=== PATIENT | male | born 1965 | race African-American/Black ===

== ENCOUNTER 2023-04-18 12:17 | Inpatient (IN) | payer OTHER ==
[2023-04-18 12:38] VITALS: BMI 23.8
[2023-04-18] MEDS ORDERED: NALOXONE HCL 0.4 MG/ML VIAL IM PRN (13:18)
[2023-04-18] MEDS ORDERED: guaiFENesin 600 MG TABLET.ER (FP) PO PRN (13:18)
[2023-04-18] MEDS ORDERED: hydrOXYzine PAMOATE 25 MG CAPSULE (FP) PO PRN (13:18)
[2023-04-18] MEDS ORDERED: BENZOCAINE/MENTHOL (CHLORASEPTIC ) LOZENGE MM PRN (13:18)
[2023-04-18] MEDS ORDERED: IBUPROFEN 600 MG TABLET (FP) PO PRN (13:18)
[2023-04-18] MEDS ORDERED: NALOXONE HCL (KLOXXADO) 8 MG SPRAY NS PRN (13:18)
[2023-04-18] MEDS ORDERED: MAGNESIUM HYDROX 2400MG/30ML ORAL SUSPENSION 30 ML CUP PO PRN (13:18)
[2023-04-18] MEDS ORDERED: COLLOIDAL OATMEAL 1 BAR EACH TP PRN (13:18)
[2023-04-18] MEDS ORDERED: POLYETHYLENE GLYCOL (HEALTHYLAX) 3350 17 GM PACKET PO PRN (13:18)
[2023-04-18] MEDS ORDERED: LOPERAMIDE HCL 2 MG CAPSULE PO PRN (13:18)
[2023-04-18] MEDS ORDERED: AMMONIUM LACTATE 12% LOTION 225 GM BOTTLE TP PRN (13:18)
[2023-04-18] MEDS ORDERED: ACETAMINOPHEN 325 MG TABLET (FP) PO PRN (13:18)
[2023-04-18] MEDS ORDERED: MAG HYDROX/AL HYDROX/SIMETH 30 ML UNIT-DOSE CUP PO PRN (13:18)
[2023-04-18] MEDS ORDERED: BENZONATATE 200 MG CAPSULE PO PRN (13:18)
[2023-04-18] MEDS ORDERED: IBUPROFEN 400 MG TABLET (FP) PO PRN (13:18)
[2023-04-18] MEDS ORDERED: NICOTINE 14 MG/24 HOURS TOPICAL PATCH TD ONE (15:07)
[2023-04-18] MEDS ORDERED: PRENATAL VITAMINS W/ FOLIC ACID TABLET (FP) PO ONE (15:07)
[2023-04-18] MEDS: NICOTINE 14 MG/24 HOURS TOPICAL PATCH TD SCH (15:15)
[2023-04-18] MEDS: PRENATAL VITAMINS W/ FOLIC ACID TABLET (FP) PO SCH (15:15)
[2023-04-18] MEDS: MELATONIN 5 MG TABLETS PO SCH (21:26)
[2023-04-18] MEDS: THIAMINE HCL 100 MG TABLET (FP) PO SCH (21:26)
[2023-04-19] MEDS: NICOTINE 14 MG/24 HOURS TOPICAL PATCH TD SCH (09:55)
[2023-04-19] MEDS: metFORMIN HCL 500 MG TABLET (FP) PO SCH ×2 (09:55→16:27)
[2023-04-19] MEDS: PRENATAL VITAMINS W/ FOLIC ACID TABLET (FP) PO SCH (09:55)
[2023-04-19] MEDS ORDERED: ALBUTEROL SO4 HFA INHALER IH PRN (10:00)
[2023-04-19] MEDS ORDERED: ARIPiprazole 10 MG TABLET PO SCH (10:00)
[2023-04-19 10:52] LABS: HEMATOCRIT 42.7 % (35.4-49); HEMOGLOBIN 14.2 GM/dL (11.7-16.9); MCH 31.2 pg (25.7-33.7); MCHC 33.3 g/dl (32.0-35.9); MEAN CELL VOLUME 93.6 fl (80-96); PLATELET COUNT 266 10^3/uL (134-434); RBC 4.56 M/mm3 (4.00-5.60); RDW 13.7 % (11.9-15.9); WHITE BLOOD COUNT 7.8 K/mm3 (4.0-10.0)
[2023-04-19 10:55] LABS: POTASSIUM 4.2 mmol/L (3.5-5.1)
[2023-04-19 10:59] LABS: ALBUMIN 3.2 g/dl (3.4-5.0); BLOOD UREA NITROGEN 16.7 mg/dL (7-18); CALCIUM 9.3 mg/dL (8.5-10.1); PH,URINE 5.5 (5.0-8.0); URINE APPEARANCE CLEAR; URINE BILIRUBIN NEGATIVE (NEGATIVE); URINE COLOR YELLOW; URINE GLUCOSE (UA) 2+ (NEGATIVE); URINE KETONE NEGATIVE (NEGATIVE); URINE LEUK ESTERASE NEGATIVE (NEGATIVE); URINE NITRITE NEGATIVE (NEGATIVE); URINE PROTEIN NEGATIVE (NEGATIVE); URINE UROBILINOGEN 0.2 mg/dL (0.2-1.0)
[2023-04-19 11:02] LABS: CREATININE 0.9 mg/dL (0.55-1.3)
[2023-04-19 11:04] LABS: BILIRUBIN,TOTAL 0.8 mg/dL (0.2-1); TOT PROT 6.7 g/dl (6.4-8.2)
[2023-04-19] MEDS: ARIPiprazole 10 MG TABLET PO SCH (11:18)
[2023-04-19 12:10] LABS: SYPHILIS W/ RPR CONF REACTIVE (NONREACTIVE)
[2023-04-19] MEDS ORDERED: METHYL SALICYLATE/MENTHOL OINT 30 GM TUBE TP PRN (13:47)
[2023-04-19] MEDS: LIDOCAINE 5% TOPICAL PATCH TP SCH (14:08)
[2023-04-19] MEDS: BACLOFEN 10 MG TABLET (FP) PO SCH ×2 (14:08→21:17)
[2023-04-19] MEDS: THIAMINE HCL 100 MG TABLET (FP) PO SCH (21:17)
[2023-04-19] MEDS: MELATONIN 5 MG TABLETS PO SCH (21:17)
[2023-04-19] MEDS: LIDOCAINE PATCH REMOVAL MC SCH (21:17)
[2023-04-20] MEDS: BACLOFEN 10 MG TABLET (FP) PO SCH ×3 (06:30→21:29)
[2023-04-20] MEDS: metFORMIN HCL 500 MG TABLET (FP) PO SCH ×2 (06:30→16:31)
[2023-04-20] MEDS: ARIPiprazole 10 MG TABLET PO SCH (10:23)
[2023-04-20] MEDS: NICOTINE 14 MG/24 HOURS TOPICAL PATCH TD SCH (10:24)
[2023-04-20] MEDS: PRENATAL VITAMINS W/ FOLIC ACID TABLET (FP) PO SCH (10:24)
[2023-04-20] MEDS: LIDOCAINE 5% TOPICAL PATCH TP SCH (10:26)
[2023-04-20] MEDS: MELATONIN 5 MG TABLETS PO SCH (21:29)
[2023-04-20] MEDS: THIAMINE HCL 100 MG TABLET (FP) PO SCH (21:29)
[2023-04-20] MEDS: LIDOCAINE PATCH REMOVAL MC SCH (21:30)
[2023-04-21] MEDS: metFORMIN HCL 500 MG TABLET (FP) PO SCH ×2 (06:54→17:07)
[2023-04-21] MEDS: BACLOFEN 10 MG TABLET (FP) PO SCH ×3 (06:54→21:39)
[2023-04-21] MEDS: PRENATAL VITAMINS W/ FOLIC ACID TABLET (FP) PO SCH (09:54)
[2023-04-21] MEDS: NICOTINE 14 MG/24 HOURS TOPICAL PATCH TD SCH (09:54)
[2023-04-21] MEDS: LIDOCAINE 5% TOPICAL PATCH TP SCH (09:55)
[2023-04-21] MEDS: ARIPiprazole 10 MG TABLET PO SCH (09:55)
[2023-04-21] MEDS: THIAMINE HCL 100 MG TABLET (FP) PO SCH (21:38)
[2023-04-21] MEDS: MELATONIN 5 MG TABLETS PO SCH (21:38)
[2023-04-21] MEDS: LIDOCAINE PATCH REMOVAL MC SCH (21:39)
[2023-04-22] MEDS: metFORMIN HCL 500 MG TABLET (FP) PO SCH ×2 (06:22→17:02)
[2023-04-22] MEDS: BACLOFEN 10 MG TABLET (FP) PO SCH ×3 (06:23→21:27)
[2023-04-22] MEDS: LIDOCAINE 5% TOPICAL PATCH TP SCH (10:08)
[2023-04-22] MEDS: PRENATAL VITAMINS W/ FOLIC ACID TABLET (FP) PO SCH (10:08)
[2023-04-22] MEDS: ARIPiprazole 10 MG TABLET PO SCH (10:09)
[2023-04-22] MEDS: NICOTINE 14 MG/24 HOURS TOPICAL PATCH TD SCH (10:09)
[2023-04-22] MEDS: THIAMINE HCL 100 MG TABLET (FP) PO SCH (21:27)
[2023-04-22] MEDS: MELATONIN 5 MG TABLETS PO SCH (21:28)
[2023-04-22] MEDS: LIDOCAINE PATCH REMOVAL MC SCH (21:30)
[2023-04-23] MEDS: metFORMIN HCL 500 MG TABLET (FP) PO SCH (06:12)
[2023-04-23] MEDS: BACLOFEN 10 MG TABLET (FP) PO SCH (06:12)
[2023-04-23 07:03] VITALS: BP 106/74; PULSE 75; RESP 18; TEMP 97.1
== END 2023-04-23 07:25 | disposition left against medical advice (07) | DRG 770 ==
LOC: YASAS 12:17 → Y3W 14:46
PROVIDERS: ADMIT Allergy & Immunology; ATTEND Psychiatry & Neurology Pain Medicine
PROC: HZ42ZZZ Group Counseling for Substance Abuse Treatment, Cognitive-Behavioral (ICD-10-PCS; principal; 2023-04-18)
DX: F14.20 Cocaine dependence, uncomplicated (principal); F10.10 Alcohol abuse, uncomplicated; F17.210 Nicotine dependence, cigarettes, uncomplicated; F25.9 Schizoaffective disorder, unspecified; J45.909 Unspecified asthma, uncomplicated; M17.12 Unilateral primary osteoarthritis, left knee; M54.50 Low back pain, unspecified; G89.29 Other chronic pain; Z86.11 Personal history of tuberculosis; Z86.19 Personal history of other infectious and parasitic diseases
CPT/HCPCS: 36415; 71046-TC-FY; 80053; 81003; 82962; 85027; 86593; 86780; 86803; 87635; 87811; 93005; 93010; J0475